=== PATIENT | female | born 1965 | race Caucasian/White ===

== ENCOUNTER 2018-08-13 20:01 | Emergency (ER) | payer BC ==
[2018-08-13 20:05] VITALS: TEMP 98.2
[2018-08-13] MEDS ORDERED: SODIUM CHLORIDE 0.9% 1,000 ML IV STA (20:55)
--- NOTE | 2018-08-13 20:57 | ED ---
General Adult HPI - General Chief complaint: Recheck/Abnormal Lab/Rx Stated complaint: Abn Labs Time Seen by Provider: 08/13/18 20:35 Source: patient, RN notes reviewed Mode of arrival: ambulatory Limitations: no limitations - History of Present Illness Initial comments: This is a 53-year-old female who presents to the emergency department with chief complaint of hyperkalemia. Patient states that she had labs drawn today. She states she was contacted at 7:[address] Daily and was told that her potassium was 6.5. He instructed her to come to the emergency department for further evaluation. 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 She states that she is supposed to follow up with a specialist regarding her potassium next Wednesday. Patient has no complaints. She denies fevers or chills, chest pain or shortness of breath, palpitations, abdominal pain, nausea or vomiting, dizziness or headache. - Related Data Home Medications Medication Instructions Recorded Confirmed Loratadine [Claritin] 10 mg PO DAILY 02/11/15 02/11/15 Previous Rx's Medication Instructions Recorded HYDROcodone/APAP 7.5-325MG [[place] 1 each PO Q6H PRN #20 tab 02/13/15 7.5-325] Nicotine 21Mg/24Hr Patch [Habitrol] 1 patch TRANSDERM DAILY #30 patch 02/13/15 Allergies Allergy/AdvReac Type Severity Reaction Status Date / Time Penicillins Allergy Rash/Hives Verified 08/13/18 20:05 Review of Systems ROS Statement: Those systems with pertinent positive or pertinent negative responses have been documented in the HPI. ROS Other: All systems not noted in ROS Statement are negative. Past Medical History Past Medical History: Asthma, COPD, Hearing Disorder / Deafness, Osteoarthritis (OA) Additional Past Medical History / Comment(s): Have not gotten blood work done in a long time History of Any Multi-Drug Resistant Organisms: None Reported Past Surgical History: Bariatric Surgery, Section, Cholecystectomy, Hysterectomy, Orthopedic Surgery Additional Past Surgical History / Comment(s): Left foot surgery(repair) ; shoulder surgery, Lap band 2003 Past Anesthesia/Blood Transfusion Reactions: No Reported Reaction Past Psychological History: Anxiety, Depression Smoking Status: Current every day smoker Past Alcohol Use History: Rare Past Drug Use History: Marijuana - Past Family History Mother Family Medical History: Deep Vein Thrombosis (DVT) Additional Family Medical History / Comment(s): Stent in heart Father Family Medical History: Hypertension Additional Family Medical History / Comment(s): Aunt with lung cancer, Aunt with rectal cancer General Exam - General Exam Comments Initial Comments: General: Awake and alert, well-developed; in no apparent distress. Pleasant female, resting comfortably on ED stretcher with at bedside. HEENT: Head atraumatic, normocephalic. Pupils are equal, round and reactive to light. Extraocular movements intact. Oropharynx moist without erythema or exudate. Neck: Supple. Normal ROM. Cardiovascular: Regular rate and rhythm. No murmurs, rubs or gallops. Chest symmetrical. Respiratory: Lungs clear to auscultation bilaterally. No wheezes, rales or rhonchi. Normal respiratory effort with no use of accessory muscles. Abdomen: Soft, non-tender, non-distended. No rigidity, rebound or guarding. Normal bowel sounds in all 4 quadrants. Musculoskeletal: Normal ROM, no tenderness bilateral upper and lower extremities. Ambulating normally. Skin: [place], warm and dry without rashes or lesions. Neurological: Alert and oriented x3. CN II-XII grossly intact. Speech is fluent and answers are appropriate. No focal neuro deficits. Psychiatric: Normal mood and affect. No overt signs of depression or anxiety noted. Limitations: no limitations Course Vital Signs 08/13/18 20:04 Temperature 98.2 F Pulse Rate 94 Respiratory 18 Rate Blood Pressure 116/82 O2 Sat by Pulse 98 Oximetry EKG Findings - EKG Comments: EKG Findings:: 21:10:25 Normal sinus rhythm. Normal ECG. Ventricular rate 77 bpm, ME interval 124, QRS duration 86, QT/QTC 382/432 Medical Decision Making - Medical Decision Making This is a 53-year-old female who presents to the emergency department with chief complaint of hyperkalemia. Patient states she was contacted by Dr. Daily and was instructed to come to the emergency department as her potassium was 6.5. Patient has no complaints. Potassium was rechecked and is within normal limits at 4.5. EKG shows normal sinus rhythm with no peaked T waves or EKG changes. Vitals have been stable and patient is in no acute distress. She will be discharged home at this time. Recommended following up with Dr. Daily on Wednesday. Patient is in agreement with plan and voices understanding. She will be discharged home at this time. All questions answered. - Lab Data Result diagrams: 08/13/18 21:18 Lab Results 08/13/18 Range/Units 21:18 Sodium 142 (137-145) mmol/L Potassium 4.5 (3.5-5.1) mmol/L Chloride 111 H (98-107) mmol/L Carbon Dioxide 26 (22-30) mmol/L Anion Gap 5 mmol/L BUN 26 H (7-17) mg/dL Creatinine 1.38 H (0.52-1.04) mg/dL Est GFR (CKD-EPI)AfAm 50 (>60 ml/min/1.73 sqM) Est GFR (CKD-EPI)NonAf 43 (>60 ml/min/1.73 sqM) Glucose 99 (74-99) mg/dL Calcium 9.1 (8.4-10.2) mg/dL Disposition Clinical Impression: Feared complaint without diagnosis Disposition: HOME SELF-CARE Condition: Good Instructions: Hypokalemia (ED) Additional Instructions: Please follow up with primary care provider within 1-2 days. Return to emergency department if symptoms should worsen or any concerns arise. Is patient prescribed a controlled substance at d/c from ED?: No Referrals: Bob Daily MD [Primary Care Provider] - 1-2 days Time of Disposition: 22:19
[2018-08-13 21:51] LABS: Calcium 9.1 mg/dL (8.4-10.2); Potassium 4.5 mmol/L (3.5-5.1)
[2018-08-13 22:29] VITALS: BP 141/84; PULSE 75; RESP 16
== END 2018-08-13 22:36 | disposition home or self-care (01) ==
LOC: EC 20:01
DX: Z71.1 Person with feared health complaint in whom no diagnosis is made (principal); H91.90 Unspecified hearing loss, unspecified ear; F17.200 Nicotine dependence, unspecified, uncomplicated; Z88.0 Allergy status to penicillin; Z79.899 Other long term (current) drug therapy
CPT/HCPCS: 36415; 80048; 93005; 96360; 99283

== ENCOUNTER 2021-02-25 08:10 | Day surgery (SDC) | payer BC ==
[2021-02-24 11:35] VITALS: BMI 32.5
[~2021-02-25 08:10] MED LIST: LACTATED RINGERS 1,000 ML IV SCH; LIDOCAINE 1% (10MG/ML) FOR IV START INTRADERMA PRN
[2021-02-25 08:30] VITALS: TEMP 97.6
--- NOTE | 2021-02-25 09:25 | P.GSHP ---
History of Present Illness H&P Date: 02/25/21 Chief Complaint: Colon cancer screening Patient here today for screening colonoscopy. Last colonoscopy 10 years ago. No bowel complaints. No family history of colon cancer. Past Medical History Past Medical History: Asthma, COPD, CVA/TIA, Hearing Disorder / Deafness, Osteoarthritis (OA), Pulmonary Embolus (PE) Additional Past Medical History / Comment(s): LOW BLOOD PRESSURE , WEAKNESS OF LEFT ARM AND LEFT LEG . "HAS ONLY ONE KIDNEY" History of Any Multi-Drug Resistant Organisms: None Reported Past Surgical History: Bariatric Surgery, Section, Cholecystectomy, Hysterectomy, Orthopedic Surgery Additional Past Surgical History / Comment(s): Left foot surgery(repair) ; shoulder surgery, Lap band 2003 Past Anesthesia/Blood Transfusion Reactions: No Reported Reaction Smoking Status: Current every day smoker - Past Family History Mother Family Medical History: Coronary Artery Disease (CAD), Deep Vein Thrombosis (DVT) Additional Family Medical History / Comment(s): Stent in heart Father Family Medical History: Hypertension Additional Family Medical History / Comment(s): Aunt with lung cancer, Aunt with rectal cancer Medications and Allergies Home Medications Medication Instructions Recorded Confirmed Type Loratadine [Claritin] 10 mg PO DAILY 02/11/15 02/24/21 History Apixaban [Eliquis] 2.5 mg PO BID 02/24/21 02/24/21 History DULoxetine HCL [Cymbalta] 90 mg PO DAILY 02/24/21 02/24/21 History Midodrine [ProAmatine] 5 mg PO TID 02/24/21 02/25/21 History Allergies Allergy/AdvReac Type Severity Reaction Status Date / Time Penicillins Allergy Rash/Hives Verified 02/25/21 08:23 Surgical - Exam Vital Signs Temp Pulse Resp BP Pulse Ox 97.6 F 80 17 121/67 96 02/25/21 08:29 02/25/21 08:29 02/25/21 08:29 02/25/21 08:29 02/25/21 08:29 Physical exam: General: Well-developed, well-nourished HEENT: Normocephalic, sclerae nonicteric Abdomen: Nontender, nondistended Extremities: No edema Neuro: Alert and oriented Assessment and Plan (1) Colon cancer screening Narrative/Plan: Will proceed with colonoscopy Current Visit: Yes Status: Acute Code(s): Z12.11 - ENCOUNTER FOR SCREENING FOR MALIGNANT NEOPLASM OF COLON SNOMED Code(s): 908533411
[2021-02-25] MEDS ORDERED: PROPOFOL 10 MG/ML 20 ML VIAL IV ONE (09:29)
--- NOTE | 2021-02-25 09:48 | P.PCN ---
Date of Procedure: 02/25/21 Procedure(s) Performed: PREOPERATIVE DIAGNOSIS: Colon cancer screening POSTOPERATIVE DIAGNOSIS: Sigmoid colon polyp, diverticulosis PROCEDURE: Colonoscopy with snare polypectomy ANESTHESIA: MAC SURGEON: Beka Toledo M.D. SPECIMENS: Polyps ENDOSCOPIC PROCEDURE: The patient was placed on the endoscopy table in the left decubitus position. The Olympus colonoscope was inserted into the anus and passed under direct visualization to the base of the cecum. The appendiceal orifice was visualized. From that point the scope was slowly withdrawn inspecting all surfaces carefully. There were no neoplastic inflammatory or polypoid lesions throughout the cecum, ascending, transverse, and descending colon. In the sigmoid colon a small polyp was seen and removed using the snare with cautery technique. The remainder of the sigmoid and rectum appeared normal. There was mild left-sided diverticulosis. Digital rectal examination was normal. The patient was taken to the recovery room in stable condition per anesthesia guidelines. RECOMMENDATIONS: Resume diet. Follow colonoscopy in 5-7 years
[2021-02-25 09:58] VITALS: RESP 16
[2021-02-25 10:13] VITALS: BP 129/93; PULSE 69
== END 2021-02-25 10:27 | disposition home or self-care (01) ==
LOC: ORWHC2ENDO 08:10
PROVIDERS: ATTEND Surgery
DX: Z12.11 Encounter for screening for malignant neoplasm of colon (principal); D12.5 Benign neoplasm of sigmoid colon; K57.30 Diverticulosis of large intestine without perforation or abscess without bleeding; J44.9 Chronic obstructive pulmonary disease, unspecified; H91.90 Unspecified hearing loss, unspecified ear; M19.90 Unspecified osteoarthritis, unspecified site; I95.9 Hypotension, unspecified; Q60.0 Renal agenesis, unilateral; F17.200 Nicotine dependence, unspecified, uncomplicated; K08.89 Other specified disorders of teeth and supporting structures; Z98.890 Other specified postprocedural states; Z86.73 Personal history of transient ischemic attack (TIA), and cerebral infarction without residual deficits; Z86.711 Personal history of pulmonary embolism; Z98.84 Bariatric surgery status; Z90.49 Acquired absence of other specified parts of digestive tract; Z90.710 Acquired absence of both cervix and uterus; Z79.899 Other long term (current) drug therapy; Z79.01 Long term (current) use of anticoagulants; Z88.0 Allergy status to penicillin; Z82.49 Family history of ischemic heart disease and other diseases of the circulatory system; Z80.1 Family history of malignant neoplasm of trachea, bronchus and lung; Z80.0 Family history of malignant neoplasm of digestive organs
CPT/HCPCS: 88305; 45385; J2704